=== PATIENT | female | born 1975 | race Two or more races ===

== ENCOUNTER 2023-12-08 14:30 | Outpatient (CLI) | payer OTHER ==
[~2023-12-08 14:30] MED LIST: IRON; VITAMIN B; VITAMIN C; VITAMIN K100 MCG
== END 2023-12-08 14:34 | disposition home or self-care (01) ==
LOC: SONOGRAMA 14:30
PROVIDERS: ATTEND Obstetrics & Gynecology Gynecology
DX: R10.2 Pelvic and perineal pain (principal)

== ENCOUNTER 2024-02-08 08:29 | Outpatient (CLI) | payer OTHER ==
[2024-02-08 09:10] LABS: HEMATOCRIT 38.3 % (36.0-45.00); MEAN CELL VOLUME 87.3 fL (80.00-100.00); MEAN CORPUSCULAR HEMOGLOBIN 29.7 pg (27.00-32.0); PLATELET COUNT 268 K/uL (150-450); RED BLOOD COUNT 4.38 M/uL (4.00-6.00); RED CELL DISTRIBUTION WIDTH 13.3 % (11.5-14.5)
[2024-02-08 10:37] LABS: ALBUMIN 4.3 gm/dL (3.4-5.0); BILIRUBIN TOTAL 0.36 mg/dL (0.3-1.2); CALCIUM 9.7 mg/dL (8.5-10.1); CHOL HDL RATIO 2.3 (0-5.0); CREATININE SERUM 0.9 mg/dL (0.55-1.02); GFR 66.83; GLOBULINA 3.8 G/DL (2.4-3.5); MAGNESIUM 2.2 mg/dL (1.8-2.4); PHOSPHOROUS 3.2 mg/dL (2.5-4.9); POTASSIUM 3.96 mEq/L (3.5-5.1); TOTAL PROTEIN 8.1 gm/dL (6.4-8.2); TSH 2.34 uIU/mL (0.358-3.74)
== END 2024-02-08 08:36 | disposition home or self-care (01) ==
LOC: LAB 08:29
DX: E03.8 Other specified hypothyroidism (principal); R73.01 Impaired fasting glucose; E78.2 Mixed hyperlipidemia

== ENCOUNTER 2024-02-08 10:10 | Outpatient (CLI) | payer OTHER | END 2024-02-08 10:14 | disposition home or self-care (01) | LOC: SONOGRAMA 10:10 | PROVIDERS: ATTEND Internal Medicine Endocrinology, Diabetes & Metabolism | DX: E04.2 Nontoxic multinodular goiter (principal); R59.0 Localized enlarged lymph nodes ==

== ENCOUNTER 2024-03-08 08:07 | Outpatient (CLI) | payer OTHER | END 2024-03-08 08:13 | disposition home or self-care (01) | LOC: SONOGRAMA 08:07 | PROVIDERS: ATTEND Pathology Anatomic Pathology & Clinical Pathology | DX: E04.2 Nontoxic multinodular goiter (principal); D34 Benign neoplasm of thyroid gland; E07.89 Other specified disorders of thyroid ==

== ENCOUNTER 2024-05-01 13:03 | Emergency (ER) | payer OTHER ==
[~2024-05-01] VITALS: Ht 152.4 cm; Wt 70.3 kg
[2024-05-01] MEDS ORDERED: NASAL MIST126 ML (13:26)
[2024-05-01] MEDS ORDERED: FAMOtidine 10 MG/ML (4ML VIAL) IV ONE (14:15)
[2024-05-01] MEDS ORDERED: ONDANSETRON HCL 2 MG/ML VIAL IV ONE (14:15)
[2024-05-01] MEDS ORDERED: 0.9 % SODIUM CHLORIDE 1,000 ML IV ONE (14:15)
[2024-05-01] MEDS ORDERED: KETOROLAC TROMETHAMINE 30 MG VIAL IU ONE (15:15)
[2024-05-01 15:50] LABS: HEMATOCRIT 38.4 % (36.0-45.00); MEAN CELL VOLUME 87.5 fL (80.00-100.00); MEAN CORPUSCULAR HEMOGLOBIN 29.5 pg (27.00-32.0); MEAN CORPUSCULAR HGB CONC 33.8 g/dl (32.0-36.0); PLATELET COUNT 281 K/uL (150-450); RED BLOOD COUNT 4.39 M/uL (4.00-6.00); RED CELL DISTRIBUTION WIDTH 13.3 % (11.5-14.5)
[2024-05-01 16:25] LABS: PARTIAL THROMBOPLASTIN TIME 27.9 SECONDS (22.0-34.0); PROTHROMBIN TIME 10.9 SECONDS (9.0-11.5)
[2024-05-01 16:38] LABS: BILIRUBIN TOTAL 0.71 mg/dL (0.3-1.2); CALCIUM 10.2 mg/dL (8.5-10.1); CREATININE SERUM 0.92 mg/dL (0.55-1.02); GFR 65.15; GLOBULINA 5.9 G/DL (2.4-3.5); POTASSIUM 3.45 mEq/L (3.5-5.1); TOTAL PROTEIN 9.9 gm/dL (6.4-8.2)
[2024-05-01 18:08] LABS: URINE APPEARANCE Clear; URINE BILIRRUBIN Negative (NEGATIVE); URINE BLOOD Small; URINE COLOR Yellow; URINE GLUCOSE Negative (NEGATIVE); URINE KETONE Trace (NEGATIVE); URINE LEUKOCYTE Negative; URINE NITRATE Negative; URINE PROTEIN 30 (NEGATIVE); URINE UROBILINOGEN 0.2 E.U./dl
[2024-05-01 19:11] LABS: URINE EPITHELIAL CELLS 0-4 /HPF; URINE RBC 0-3 /HPF
[2024-05-01 19:12] LABS: URINE BACTERIA FEW
[2024-05-01] MEDS ORDERED: MAG HYDROX/ALUMINUM HYD/SIMETH 30 ML BLIST.PACK PO ONE (20:00)
[2024-05-01] MEDS ORDERED: HYOSCYAMINE SULFATE 0.125 MG TAB.SUBL SL ONE (20:00)
== END 2024-05-01 20:16 | disposition home or self-care (01) ==
LOC: ER 13:06
PROVIDERS: General Practice
DX: R11.10 Vomiting, unspecified (principal); R11.2 Nausea with vomiting, unspecified; Z20.822 Contact with and (suspected) exposure to COVID-19
CPT/HCPCS: 36415; 74177; Q9965

== ENCOUNTER 2024-05-31 07:59 | Outpatient (CLI) | payer OTHER ==
[~2024-05-31 07:59] MED LIST changes: +NASAL MIST126 ML
[2024-05-31 08:41] LABS: PH,URINE 7.5 (5.0-8.0); URINE APPEARANCE Clear; URINE BILIRRUBIN Negative (NEGATIVE); URINE BLOOD Negative; URINE COLOR Yellow; URINE GLUCOSE Negative (NEGATIVE); URINE KETONE Negative (NEGATIVE); URINE LEUKOCYTE Moderate; URINE NITRATE Negative; URINE PROTEIN Negative (NEGATIVE); URINE UROBILINOGEN 0.2 E.U./dl
[2024-05-31 08:42] LABS: HEMATOCRIT 37.5 % (36.0-45.00); HEMOGLOBIN 12.7 g/dL (12.0-15.00); MEAN CELL VOLUME 86.6 fL (80.00-100.00); MEAN CORPUSCULAR HEMOGLOBIN 29.3 pg (27.00-32.0); MEAN CORPUSCULAR HGB CONC 33.9 g/dl (32.0-36.0); PLATELET COUNT 277 K/uL (150-450); RED BLOOD COUNT 4.34 M/uL (4.00-6.00); RED CELL DISTRIBUTION WIDTH 13.5 % (11.5-14.5)
[2024-05-31 08:43] LABS: URINE BACTERIA 309.6 uL (0.0-1933); URINE RBC 5.3 uL (0.0-20.8); URINE WBC 60.6 uL (0.0-23.2)
[2024-05-31 09:10] LABS: URINE CAST 0.14 uL (0.0-1.40)
[2024-05-31 09:34] LABS: ALBUMIN 4.1 gm/dL (3.4-5.0); BILIRUBIN TOTAL 0.53 mg/dL (0.3-1.2); CALCIUM 9.6 mg/dL (8.5-10.1); CHOL HDL RATIO 3.9 (0-5.0); CREATININE SERUM 0.75 mg/dL (0.55-1.02); GFR 82.48; GLOBULINA 3.6 G/DL (2.4-3.5); POTASSIUM 4.13 mEq/L (3.5-5.1); T4 TOTAL 12.99 UG/DL (4.8-13.9); TOTAL PROTEIN 7.7 gm/dL (6.4-8.2); TSH 1.99 uIU/mL (0.358-3.74)
[2024-06-01 09:07] LABS: hav igm Negative (Negative); hcv Non Reactive (Non Reactive); hep b c Negative (Negative); hep b s ag Negative (Negative)
== END 2024-05-31 08:01 | disposition home or self-care (01) ==
LOC: LAB 07:59
PROVIDERS: ATTEND General Practice
DX: D64.9 Anemia, unspecified (principal); E78.9 Disorder of lipoprotein metabolism, unspecified; I10 Essential (primary) hypertension; E11.9 Type 2 diabetes mellitus without complications; E03.8 Other specified hypothyroidism; N39.0 Urinary tract infection, site not specified; N18.9 Chronic kidney disease, unspecified; Z12.11 Encounter for screening for malignant neoplasm of colon; N25.81 Secondary hyperparathyroidism of renal origin

== ENCOUNTER 2024-05-31 13:12 | Outpatient (CLI) | payer OTHER | END 2024-05-31 13:27 | disposition home or self-care (01) | LOC: MAMO-SONO 13:12 | PROVIDERS: ATTEND Obstetrics & Gynecology Gynecology | DX: N64.59 Other signs and symptoms in breast (principal) ==

== ENCOUNTER → 2024-06-04 07:19 | Outpatient (CLI) | payer OTHER ==
[2024-06-04 09:01] LABS: ob NEGATIVE (NEGATIVE)
== END | disposition home or self-care (01) ==
LOC: LAB 07:19
PROVIDERS: ATTEND General Practice
DX: I10 Essential (primary) hypertension (principal); D64.9 Anemia, unspecified; E78.9 Disorder of lipoprotein metabolism, unspecified; E11.9 Type 2 diabetes mellitus without complications; E03.8 Other specified hypothyroidism; N39.0 Urinary tract infection, site not specified; Z12.11 Encounter for screening for malignant neoplasm of colon

== ENCOUNTER 2024-06-04 07:47 | Outpatient (CLI) | payer OTHER | END 2024-06-04 07:49 | disposition home or self-care (01) | LOC: SONOGRAMA 07:47 | PROVIDERS: ATTEND General Practice | DX: R16.0 Hepatomegaly, not elsewhere classified (principal) ==

== ENCOUNTER 2024-11-16 08:01 | Outpatient (CLI) | payer OTHER | END 2024-11-16 08:02 | disposition home or self-care (01) | LOC: SONOGRAMA 08:01 | DX: K71.6 Toxic liver disease with hepatitis, not elsewhere classified (principal) ==

== ENCOUNTER 2024-12-17 09:09 | Outpatient (CLI) | payer OTHER | END 2024-12-17 09:12 | disposition home or self-care (01) | LOC: SONOGRAMA 09:09 | PROVIDERS: ATTEND Obstetrics & Gynecology Gynecology | DX: R10.20 Pelvic and perineal pain unspecified side (principal) ==

== ENCOUNTER 2024-12-21 12:40 | Outpatient (CLI) | payer OTHER | END 2024-12-21 12:42 | disposition home or self-care (01) | LOC: NUCLEAR 12:40 | PROVIDERS: ATTEND Internal Medicine Endocrinology, Diabetes & Metabolism | DX: M81.0 Age-related osteoporosis without current pathological fracture (principal) ==

== ENCOUNTER 2025-01-30 06:26 | Outpatient (CLI) | payer OTHER ==
[2025-01-30 07:36] LABS: BASO % 0.6 % (0.1-1.2); EOS # 0.09 (0.04-0.54); EOS % 0.6 % (0.7-7.0); LYMPH # 11.22 (1.18-3.74); LYMPH % 73.9 % (19.3-53.1); MEAN PLATELET VOLUME 12.50 fl (9.4-12.4); MONO # 0.99 (0.24-0.82); MONO % 6.5 % (4.7-12.5); NEUT # 2.76 (1.56-6.13); NEUT % 18.1 % (34.0-71.1); RED CELL DISTRIBUTION WIDTH 13.8 % (11.6-14.4)
[2025-01-30 08:03] LABS: BAND MAN 2.0 %; EOSINOPHIL MAN 1.0 %; LYMPHOCYTE MAN 39.0 %; MONOCYTE MAN 8.0 %; NEUTROPHILS MAN 16.0 %
[2025-01-30 08:11] LABS: ALT/SGPT 161.0 U/L (12-78); AST/SGOT 153.0 U/L (15-37); BILIRUBIN TOTAL 0.43 mg/dL (0.3-1.2); BUN CREA RATIO 13.0 (7.0-25.0); CHOL HDL RATIO 5.8 (0-5.0); CREATININE SERUM 0.77 mg/dL (0.55-1.02); GFR 79.67; GLOBULINA 3.6 G/DL (2.4-3.5); GLUCOSE FASTING 112.0 mg/dL (65-100); HDL 28.0 mg/dl (40-60); OSMOLALITY SERUM 275.0 MOSM/KG (275-295); TSH 2.47 uIU/mL (0.358-3.74)
[2025-01-30 08:19] LABS: LDL 89.0 mg/dl (0-130); T4 FREE 1.53 NG/ML (0.76-1.46); VLDL 45.0 (0-39)
== END 2025-01-30 06:33 | disposition home or self-care (01) ==
LOC: LAB 06:26
PROVIDERS: ATTEND Internal Medicine Endocrinology, Diabetes & Metabolism
DX: R73.01 Impaired fasting glucose (principal); E78.2 Mixed hyperlipidemia; D64.9 Anemia, unspecified; R94.5 Abnormal results of liver function studies; E11.65 Type 2 diabetes mellitus with hyperglycemia